=== PATIENT | male | born 1930 | race Caucasian/White ===

== ENCOUNTER → 2020-04-08 | Outpatient (CLI) | payer MEDICARE, OTHER ==
[~2020-04-08] MED LIST: ADALAT CC60 MG PO; ASPIRIN EC81 MG PO; BENTYL 20MG TAB20 MG PO; CARAFATE 1 GM TA1 GM PO; COLACE100 MG PO; COZAAR 50MG TAB50 MG PO; ECOTRIN81 MG PO; HYDROCODON-ACE1 EAC4 PO; IMODIUM CAP 2 MG2 MG PO; K-DUR TAB 20 M20 MEQ PO; MEN'S MULTI-VI1 EACH PO; POTASSIUM CHLO20 ME1 PO; PRAVACHOL20 MG PO; PROTONIX40 MG PO; TAMSULOSIN HCL0.4 MG PO; TYLENOL325 MG PO; ULORIC80 MG PO; ZOFRAN4 MG PO; [UNRECOGNIZED DRUG - OTHER] PO
== END ==
LOC: LAB 09:09
PROVIDERS: Physician Assistant Medical
DX: E86.0 Dehydration (principal); E87.6 Hypokalemia; F34.1 Dysthymic disorder; I10 Essential (primary) hypertension; K21.9 Gastro-esophageal reflux disease without esophagitis
CPT/HCPCS: 36415; 80048

== ENCOUNTER → 2020-04-12 | Outpatient (CLI) | payer MEDICARE, OTHER | LOC: LAB 11:27 | PROVIDERS: Physician Assistant Medical | DX: E86.0 Dehydration (principal); E87.6 Hypokalemia; F34.1 Dysthymic disorder; I10 Essential (primary) hypertension; K21.9 Gastro-esophageal reflux disease without esophagitis | CPT/HCPCS: 36415; 80048 ==

== ENCOUNTER → 2020-04-16 | Outpatient (CLI) | payer MEDICARE, OTHER | LOC: LAB 09:40 | PROVIDERS: Physician Assistant Medical | DX: N18.31 Chronic kidney disease, stage 3a (principal); E87.6 Hypokalemia | CPT/HCPCS: 36415; 80048 ==

== ENCOUNTER → 2020-04-27 | Outpatient (CLI) | payer MEDICARE | LOC: OPSV2 11:22 | DX: Z01.818 Encounter for other preprocedural examination (principal); K82.8 Other specified diseases of gallbladder ==

== ENCOUNTER → 2020-04-28 | Day surgery (SDC) | payer MEDICARE, OTHER | END | disposition home or self-care (01) | LOC: OR 06:28 | DX: K81.1 Chronic cholecystitis (principal); K82.8 Other specified diseases of gallbladder; I10 Essential (primary) hypertension; R01.1 Cardiac murmur, unspecified; R06.02 Shortness of breath; R53.83 Other fatigue; I08.3 Combined rheumatic disorders of mitral, aortic and tricuspid valves; M10.9 Gout, unspecified; K25.9 Gastric ulcer, unspecified as acute or chronic, without hemorrhage or perforation; N20.0 Calculus of kidney; Z85.46 Personal history of malignant neoplasm of prostate; Z79.899 Other long term (current) drug therapy; Z88.5 Allergy status to narcotic agent; Z88.8 Allergy status to other drugs, medicaments and biological substances | CPT/HCPCS: J0690; J1100; J2001; J2405; J2704; J2710; J3010; J7030; J7120 ==

== ENCOUNTER → 2020-06-07 | Outpatient (CLI) | payer MEDICARE, OTHER | LOC: KOH-I 15:05 | DX: R63.4 Abnormal weight loss (principal) | CPT/HCPCS: 71046 ==

== ENCOUNTER → 2020-06-09 | Outpatient (CLI) | payer MEDICARE, OTHER ==
[2020-06-09 16:04] LABS: HEMOGLOBIN 13.3 gm/dl (14.0-17.5); RED BLOOD COUNT 4.17 M/UL (4.20-5.50); WHITE BLOOD COUNT 6.7 K/UL (4.5-11.0)
== END ==
LOC: LAB 15:38
PROVIDERS: Internal Medicine Gastroenterology
DX: R74.8 Abnormal levels of other serum enzymes (principal)
CPT/HCPCS: 36415; 80076; 82150; 83690; 85027

== ENCOUNTER → 2020-06-15 | Outpatient (CLI) | payer MEDICARE, OTHER | LOC: KOH-I 15:07 | DX: R10.10 Upper abdominal pain, unspecified (principal); N20.0 Calculus of kidney | CPT/HCPCS: 74176 ==

== ENCOUNTER 2020-09-18 09:06 | Emergency (ER) | payer MEDICARE, OTHER ==
[2020-09-18 09:36] LABS: HEMOGLOBIN 14.1 gm/dl (14.0-17.5); RED BLOOD COUNT 4.52 M/UL (4.20-5.50); WHITE BLOOD COUNT 6.7 K/UL (4.5-11.0)
[2020-09-18 10:00] LABS: BUN/CREATININE RATIO 17 (0-10)
== END 2020-09-18 13:09 | disposition home or self-care (01) ==
LOC: ER1 09:06
PROVIDERS: Emergency Medicine
DX: E87.6 Hypokalemia (principal); R10.9 Unspecified abdominal pain; R19.7 Diarrhea, unspecified; Z90.49 Acquired absence of other specified parts of digestive tract
CPT/HCPCS: 80053; 81001; 82550; 82553; 83605; 83690; 83874; 84484; 85025; 96374; 96375; 99284; J2270; J2405; Q9967

== ENCOUNTER 2020-11-22 20:02 | Inpatient (IN) | payer MEDICARE, OTHER ==
[~2020-11-22] VITALS: Ht 188 cm; Wt 88.0 kg
[~2020-11-22 20:02] MED LIST changes: -ADALAT CC60 MG PO; -TYLENOL325 MG PO
[2020-11-22 21:06] LABS: HEMOGLOBIN 12.8 gm/dl (14.0-17.5); RED BLOOD COUNT 4.14 M/UL (4.20-5.50)
[2020-11-22 21:39] LABS: BUN/CREATININE RATIO 16 (0-10)
[2020-11-23 04:13] LABS: HEMOGLOBIN 12.7 gm/dl (14.0-17.5); RED BLOOD COUNT 4.13 M/UL (4.20-5.50); WHITE BLOOD COUNT 5.5 K/UL (4.5-11.0)
[2020-11-23 04:35] LABS: BUN/CREATININE RATIO 13 (0-10)
[2020-11-23] MEDS ORDERED: TYLENOL EXTRA500 MG PO (07:11)
[2020-11-23] MEDS ORDERED: ADALAT CC30 MG PO (07:24)
[2020-11-23] MEDS ORDERED: BUSPIRONE HCL7.5 MG PO (10:33)
[2020-11-23] MEDS ORDERED: BENTYL 10MG CAP10 MG PO (10:33)
[2020-11-23] MEDS ORDERED: PROSCAR 5 MG TAB5 MG PO (11:23)
[2020-11-23] MEDS ORDERED: MAG-OX 400 TAB400 MG PO (11:24)
[2020-11-23] MEDS ORDERED: ULORIC 40 MG TA40 MG PO (18:41)
[2020-11-24] MEDS ORDERED: DECADRON6 MG PO (12:35)
== END 2020-11-24 15:36 | disposition home or self-care (01) | DRG 871 ==
LOC: ER1 20:02 → CDU 23:03 → MED SURG 4 11-23 17:08
PROVIDERS: Family Medicine; ADMIT Internal Medicine
PROC: XW033E5 Introduction of Remdesivir Anti-infective into Peripheral Vein, Percutaneous Approach, New Technology Group 5 (ICD-10-PCS; principal; 2020-11-22)
PROC: 3E0333Z Introduction of Anti-inflammatory into Peripheral Vein, Percutaneous Approach (ICD-10-PCS; 2020-11-22)
PROC: 8E0ZXY6 Isolation (ICD-10-PCS; 2020-11-23)
DX: A41.89 Other specified sepsis (principal); U07.1 COVID-19; J12.82 Pneumonia due to coronavirus disease 2019; J96.01 Acute respiratory failure with hypoxia; N17.9 Acute kidney failure, unspecified; E87.2 Acidosis; E78.5 Hyperlipidemia, unspecified; M10.9 Gout, unspecified; I12.9 Hypertensive chronic kidney disease with stage 1 through stage 4 chronic kidney disease, or unspecified chronic kidney disease; K52.9 Noninfective gastroenteritis and colitis, unspecified; N18.30 Chronic kidney disease, stage 3 unspecified; I25.10 Atherosclerotic heart disease of native coronary artery without angina pectoris; E87.6 Hypokalemia; E86.0 Dehydration; K21.9 Gastro-esophageal reflux disease without esophagitis; Z88.8 Allergy status to other drugs, medicaments and biological substances; Z90.49 Acquired absence of other specified parts of digestive tract
CPT/HCPCS: 36415; 36600; 51702; 71045; 80053; 81001; 82550; 82553; 82728; 82803; 83605; 83615; 83690; 83735; 83880; 84100; 84484; 85025; 86140; 87040; 87086; 96374; 99285; J0456; J0696; J1100; J2405; J3480; J7030; U0002

== ENCOUNTER 2020-12-02 18:43 | Inpatient (IN) | payer MEDICARE, OTHER ==
[~2020-12-02] VITALS: Ht 188 cm; Wt 88.0 kg
[~2020-12-02 18:43] MED LIST changes: +ADALAT CC30 MG PO; +BENTYL 10MG CAP10 MG PO; +BUSPIRONE HCL7.5 MG PO; +DECADRON6 MG PO; +MAG-OX 400 TAB400 MG PO; +PROSCAR 5 MG TAB5 MG PO; +TYLENOL EXTRA500 MG PO; +ULORIC 40 MG TA40 MG PO
[2020-12-02 19:16] LABS: HEMOGLOBIN 15.3 gm/dl (14.0-17.5); WHITE BLOOD COUNT 12.6 K/UL (4.5-11.0)
[2020-12-02 19:43] LABS: BUN/CREATININE RATIO 25 (0-10)
[2020-12-03 03:48] LABS: HEMOGLOBIN 14.1 gm/dl (14.0-17.5); RED BLOOD COUNT 4.6 M/UL (4.20-5.50)
[2020-12-03 03:51] LABS: WHITE BLOOD COUNT 20.2 K/UL (4.5-11.0)
[2020-12-04 04:39] LABS: HEMOGLOBIN 13.3 gm/dl (14.0-17.5); RED BLOOD COUNT 4.34 M/UL (4.20-5.50)
[2020-12-04 04:42] LABS: WHITE BLOOD COUNT 14.8 K/UL (4.5-11.0)
[2020-12-05 06:25] LABS: HEMOGLOBIN 13.8 gm/dl (14.0-17.5); RED BLOOD COUNT 4.52 M/UL (4.20-5.50); WHITE BLOOD COUNT 11.3 K/UL (4.5-11.0)
[2020-12-06 05:50] LABS: HEMOGLOBIN 12.1 gm/dl (14.0-17.5); RED BLOOD COUNT 4.04 M/UL (4.20-5.50); WHITE BLOOD COUNT 10.8 K/UL (4.5-11.0)
[2020-12-07 05:42] LABS: HEMOGLOBIN 12.3 gm/dl (14.0-17.5); RED BLOOD COUNT 4.01 M/UL (4.20-5.50)
[2020-12-08 05:07] LABS: HEMOGLOBIN 12.9 gm/dl (14.0-17.5); RED BLOOD COUNT 4.22 M/UL (4.20-5.50); WHITE BLOOD COUNT 14.2 K/UL (4.5-11.0)
[2020-12-09 05:41] LABS: HEMOGLOBIN 12.9 gm/dl (14.0-17.5); RED BLOOD COUNT 4.25 M/UL (4.20-5.50); WHITE BLOOD COUNT 11.5 K/UL (4.5-11.0)
--- NOTE | 2020-12-09 10:52 | NUR ---
KRISTIN WAS CALLED ADN RULED OUT OF ORGAN DONATION, INSTRUCTED TO CALL BACK WITH CARDIAC TIME OF
== END 2020-12-09 12:56 | disposition expired | DRG 870 ==
LOC: ER1 18:43 → CCU 20:39 → CDU 20:39 → CCU 23:52
PROVIDERS: Emergency Medicine; Internal Medicine; Internal Medicine Nephrology; Internal Medicine Pulmonary Disease; ADMIT Internal Medicine
PROC: 8E0ZXY6 Isolation (ICD-10-PCS; principal; 2020-12-02)
PROC: 02HV33Z Insertion of Infusion Device into Superior Vena Cava, Percutaneous Approach (ICD-10-PCS; 2020-12-02)
PROC: 0DH67UZ Insertion of Feeding Device into Stomach, Via Natural or Artificial Opening (ICD-10-PCS; 2020-12-02)
PROC: 5A1955Z Respiratory Ventilation, Greater than 96 Consecutive Hours (ICD-10-PCS; 2020-12-03)
PROC: XW033E5 Introduction of Remdesivir Anti-infective into Peripheral Vein, Percutaneous Approach, New Technology Group 5 (ICD-10-PCS; 2020-12-03)
PROC: 3E0333Z Introduction of Anti-inflammatory into Peripheral Vein, Percutaneous Approach (ICD-10-PCS; 2020-12-03)
PROC: XW033G5 Introduction of Sarilumab into Peripheral Vein, Percutaneous Approach, New Technology Group 5 (ICD-10-PCS; 2020-12-03)
PROC: 0BH18EZ Insertion of Endotracheal Airway into Trachea, Via Natural or Artificial Opening Endoscopic (ICD-10-PCS; 2020-12-03)
DX: A41.89 Other specified sepsis (principal); U07.1 COVID-19; J12.82 Pneumonia due to coronavirus disease 2019; J80 Acute respiratory distress syndrome; N17.0 Acute kidney failure with tubular necrosis; R65.21 Severe sepsis with septic shock; J15.9 Unspecified bacterial pneumonia; J93.9 Pneumothorax, unspecified; E87.1 Hypo-osmolality and hyponatremia; T79.7XXA Traumatic subcutaneous emphysema, initial encounter; E78.5 Hyperlipidemia, unspecified; K21.9 Gastro-esophageal reflux disease without esophagitis; M10.9 Gout, unspecified; F41.9 Anxiety disorder, unspecified; I12.9 Hypertensive chronic kidney disease with stage 1 through stage 4 chronic kidney disease, or unspecified chronic kidney disease; N18.30 Chronic kidney disease, stage 3 unspecified; N40.0 Benign prostatic hyperplasia without lower urinary tract symptoms; E09.65 Drug or chemical induced diabetes mellitus with hyperglycemia; T38.0X5A Adverse effect of glucocorticoids and synthetic analogues, initial encounter; E87.70 Fluid overload, unspecified; Z66 Do not resuscitate; E87.6 Hypokalemia; Z51.5 Encounter for palliative care; Z87.11 Personal history of peptic ulcer disease; Z90.49 Acquired absence of other specified parts of digestive tract; Z98.890 Other specified postprocedural states; Z88.8 Allergy status to other drugs, medicaments and biological substances; Z79.899 Other long term (current) drug therapy
CPT/HCPCS: 31500; 32551; 36415; 36600; 71045; 71250; 80048; 80053; 80202; 81001; 82436; 82550; 82553; 82570; 82728; 82803; 83605; 83615; 83690; 83735; 83880; 84100; 84133; 84156; 84300; 84484; 85025; 85027; 85379; 85384; 85610; 85730; 86140; 87040; 87081; 93005; 94002; 94003; 94640; 94760; 96374; 99285; A6212; C9113; J0360; J0692; J1100; J1650; J2250; J2270; J2704; J3010; J3370; J7030; J7040; J7070; J7120; P9047; Q9967; U0002